=== PATIENT | female | born 1985 | race Caucasian/White ===

== ENCOUNTER 2023-05-28 17:24 | Emergency (ER) | payer SELFPAY ==
[2023-05-28 18:04] LABS: BASOPHILS % 0.7 % (0.0-2.0); EOSINOPHILS % 1.3 % (0.0-5.0); HEMATOCRIT. 43.5 % (36.0-48.0); LYMPHOCYTES % 23.4 % (20.0-50.0); MEAN CORPUSCULAR HGB CONC 34.5 g/dL (31.0-37.0); MEAN CORPUSCULAR VOLUME 95.5 fL (81.0-99.0); MEAN PLATELET VOLUME 7.2 fl (7.4-10.4); MONOCYTES % 4.3 % (2.0-8.0); NEUTROPHILS % 70.3 % (40.0-76.0); PLATELET 265 x1000/uL (130-400); RED BLOOD CELL COUNT 4.56 mill/uL (4.2-5.4); RED CELL DISTRIBUTION WIDTH 12.2 % (11.6-14.6); WHITE BLOOD COUNT 8.2 x1000/uL (4.5-11.0)
[2023-05-28 18:13] LABS: CLARITY URINE CLOUDY (CLEAR); COLOR URINE YELLOW (YELLOW); GLUCOSE URINE NEGATIVE (NEGATIVE); KETONES URINE NEGATIVE (NEGATIVE); LEUKOCYTE ESTERASE URINE NEGATIVE (NEGATIVE); NITRITE URINE NEGATIVE (NEGATIVE); OCCULT BLOOD URINE NEGATIVE (NEGATIVE); PROTEIN URINE NEGATIVE (NEGATIVE); UROBILINOGEN URINE 0.2 E.U./dL (0.2-1.0)
[2023-05-28 18:19] LABS: ALANINE AMINOTRANSFERASE 17 IU/L (10-49); ALBUMIN 4.3 g/dL (3.2-4.8); ASPARTATE AMINOTRANSFERASE 22 IU/L (<34); BILIRUBIN TOTAL 1.1 mg/dL (0.1-1.0); CALCIUM 9.6 mg/dL (8.7-10.4); CARBON DIOXIDE 20 mEq/L (21-32); CHLORIDE 105 mEq/L (98-107); CREATININE 0.8 mg/dL (0.6-1.0); GLUCOSE 90 mg/dL (70-105); POTASSIUM 3.8 mEq/L (3.5-5.1); PROTEIN TOTAL 7.2 g/dL (6.0-8.3); SODIUM 138 mEq/L (136-145); UREA NITROGEN BLOOD 9 mg/dL (9-23)
[2023-05-28 19:01] LABS: SQUAMOUS EPITHELIAL CELL URINE 2+ /lpf (RARE/1+)
[2023-05-28 19:02] LABS: BACTERIA URINE TRACE; RBC URINE NONE SEEN /hpf (0-2); WBC URINE 0-2 /hpf (0-2); YEAST URINE NONE SEEN
[2023-05-28] MEDS ORDERED: PHEN-910 MT (19:25)
== END 2023-05-28 19:51 | disposition home or self-care (01) ==
LOC: EEVIPCON 17:24 → ER 17:24
DX: R10.30 Lower abdominal pain, unspecified (principal)
CPT/HCPCS: 36415; 76830; 76856; 80053; 81003; 85025; 87210; 99284

== ENCOUNTER 2023-12-20 02:51 | Emergency (ER) | payer BC ==
[~2023-12-20] VITALS: Ht 172.7 cm; Wt 82.0 kg
[~2023-12-20 02:51] MED LIST: PHEN-910 MT
[2023-12-20 03:02] VITALS: BP 131/86; PULSE 95; RESP 18; TEMP 98.8; O2SAT 99
[2023-12-20] MEDS: FLUORESCEIN SODIUM 1MG/STRIP LEFTEYE ONE (04:00)
[2023-12-20] MEDS: TETRACAINE 0.5% OPHTH DROPS 4ML LEFTEYE ONE (04:00)
== END 2023-12-20 04:10 | disposition home or self-care (01) ==
LOC: ER 03:11
DX: S05.02XA Injury of conjunctiva and corneal abrasion without foreign body, left eye, initial encounter (principal); H10.89 Other conjunctivitis; X58.XXXA Exposure to other specified factors, initial encounter; Y93.89 Activity, other specified; Y92.89 Other specified places as the place of occurrence of the external cause; Y99.8 Other external cause status
CPT/HCPCS: 99283

== ENCOUNTER 2025-02-15 07:25 | Emergency (ER) | payer BC ==
[~2025-02-15] VITALS: Ht 172.7 cm; Wt 82.0 kg
[2025-02-15 07:29] VITALS: BP 125/83; TEMP 36.6
[2025-02-15 07:31] VITALS: O2SAT 100
[2025-02-15 08:57] VITALS: PULSE 73; RESP 18; O2SAT 99
[2025-02-15] MEDS: IPRATROPIUM/ALBUTEROL 0.5-3(2.5)MG/3ML NEB HHN ONE (08:57)
[2025-02-15] MEDS: DEXAMETHASONE 4MG TABLET PO ONE (09:19)
[2025-02-15] MEDS ORDERED: ALBU18HF2 IH (09:56)
[2025-02-15] MEDS ORDERED: P50 MT (09:56)
== END 2025-02-15 10:02 | disposition home or self-care (01) ==
LOC: ER 07:25
DX: J20.9 Acute bronchitis, unspecified (principal); R05.9 Cough, unspecified; R06.02 Shortness of breath; Z20.822 Contact with and (suspected) exposure to COVID-19
CPT/HCPCS: 94640; 99283; 87426; J8540; Z7610 ×3